=== PATIENT | female | born 1945 | race Caucasian/White ===

== ENCOUNTER 2019-05-21 18:49 | Emergency (ER) | payer MEDICARE, OTHER, SELFPAY ==
[2019-05-21] VITALS (14 sets, daily range): BP systolic 144–163; BP diastolic 55–86; PULSE 57–63; RESP 11–25; TEMP 36.2; O2SAT 85–97
--- NOTE | 2019-05-21 18:57 | DI.CT_ITS ---
SYMPTOM/DIAGNOSIS: FALL. ON PLAVIX, R/O FX AND BLEED, STROKE CERVICAL SPINE CT: 05/21 CT examination of the cervical spine was performed according to the usual protocol. Images obtained through the lung apices show mild reticular nonspecific changes. Tracheolaryngeal structures appear intact. No cervical mass or adenopathy. No gross cervical disc herniation by CT criteria. Moderate degenerative changes are seen involving the facet joints. No evidence of acute intracranial hemorrhage, mass effect or midline shift. No evidence of acute cervical spine fracture or dislocation. CONCLUSION: No evidence of acute cervical spine injury. CRANIAL CT: 05/[address] was performed. Note is made of moderate generalized cerebral atrophy. There is no evidence of acute intracranial hemorrhage, mass effect or midline shift. No calvarial fracture is seen. Paranasal sinuses and mastoid air cells are well aerated. The orbital and temporal bone structures appear intact. CONCLUSION: No evidence of acute intracranial process.
--- NOTE | 2019-05-21 18:57 | DI.RAD_ITS ---
SYMPTOM/DIAGNOSIS: FALL, PROXIMAL HUM PAIN, R/O FX LEFT SHOULDER: 05/21 Three views were obtained and show comminuted fracture of the humeral head and neck with moderate displacement. No evidence of a glenohumeral dislocation. No other fracture seen.
--- NOTE | 2019-05-21 18:58 | DI.RAD_ITS ---
SYMPTOM/DIAGNOSIS: FALL, SOB, COUGH AP AND LATERAL CHEST: 05/21 The heart is enlarged. There is some prominence of upper lobe pulmonary vasculature and there is diffuse interstitial prominence of the lungs, most prominent in the perihilar and upper lung zones. The findings were nonspecific and may represent chronic change but the possibility of mild CHF is not excluded. No pleural effusion is seen. CONCLUSION: Question mild CHF. Appropriate follow up studies requested.
[2019-05-21 19:13] LABS: Abs Immature Grans 0.06 k/cumm (0.0-0.09); Absolute Basophil Count 0.03 k/cumm (0.0-0.2); Absolute Eosinophil Count 0.25 k/cumm (0.0-0.7); Absolute Lymphocyte Count 1.96 k/cumm (1.2-3.4); Absolute Monocyte Count 0.67 k/cumm (0.11-0.7); Absolute Neutrophil Count 6.81 k/cumm (1.2-6.7); Basophils % 0.3; Eosinophils % 2.6; HCT 38.8 % (36.0-46.0); HGB 13.3 g/dL (12.0-15.5); Immature Grans % 0.6; Mean Corp. HGB Concentration 34.3 g/dL (32.0-36.0); Mean Corpuscular Hemoglobin 32.4 pg (27.0-33.0); Mean Corpuscular Volume 94.4 fL (80-95); Mean Platelet Volume 10.2 fL (8.0-11.0); Monocytes % 6.9; Neutrophils % 69.6; Platelet Count 235 x1000/uL (130-400); RBC 4.11 m/cumm (4.00-5.20); RBC Distribution Width 12.8 % (11.7-14.6); White Blood Cell Count 9.78 k/cumm (4.4-10.8)
[2019-05-21 19:25] LABS: PTT Activated 22.7 sec (21.0-31.4); Prothrombin Time 9.5 sec (9.3-11.0)
[2019-05-21 19:30] LABS: ALT 15 U/L (12-78); AST 23 U/L (15-37); Albumin 2.9 g/dL (3.4-5.0); Alkaline Phosphatase 87 U/L (46-116); Anion Gap 10.9 mmol/L (3-11); BUN 48 mg/dL (7-18); Bilirubin, Total 0.2 mg/dL (0.2-1.0); CO2 21.1 mmol/L (21.0-32.0); CREATININE 2.54 mg/dL (0.55-1.02); Calcium 8.6 mg/dL (8.5-10.1); Chloride 109 mmol/L (98-107); Estimated GFR 18.43 (mL/min/1.73m2); Glucose 140 mg/dL (70-100); Potassium 4.5 mmol/L (3.5-5.1); Sodium 141 mmol/L (136-145); Total Protein 6.7 g/dL (6.4-8.2); Troponin I < 0.05 ng/mL (0.00-0.06)
--- NOTE | 2019-05-21 19:54 | NUR.NOTE ---
pt to ct/xray Nursing Note:
[2019-05-21 19:58] LABS: NT-proBNP 4233 pg/mL
--- NOTE | 2019-05-21 20:36 | DI.VRAD_ITS ---
EXAM: XR Left Shoulder EXAM DATE/TIME: 05/21/2019 7:00 PM CLINICAL HISTORY: 74 years old, female; Injury or trauma; Initial encounter; Blunt trauma (contusions or hematomas; Shoulder and arm, upper; Left; Patient HX: Fall, prox hum pain; Additional info: R/O FX TECHNIQUE: Imaging protocol: XR Left shoulder. Views: 2 or more views. COMPARISON: No relevant prior studies available. FINDINGS: Bones/joints: There is a comminuted left proximal humeral fracture. The transverse proximal humeral metaphyseal component demonstrates mild valgus angulation without significant displacement or impaction. There is a slightly displaced (2 mm) greater tuberosity fracture component which demonstrates mild comminution posteriorly. No scapular/glenoid fracture. Glenohumeral alignment is normal. A.C. joint alignment is normal. No blastic or lytic lesions. Adjacent ribs and lung parenchyma are unremarkable. Pleural space: No visible pleural effusion or pneumothorax. Vasculature: Moderate aortic calcification and ectasia. Soft tissues: No gross soft tissue abnormalities. IMPRESSION: Comminuted left proximal humeral fracture as described. Dictated and Authenticated by: Isaiah Meraz MD. Ordering:CARLOS Gallegos MD
--- NOTE | 2019-05-21 20:41 | DI.VRAD_ITS ---
EXAM: CT Head Without Contrast EXAM DATE/TIME: 05/21/2019 7:00 PM CLINICAL HISTORY: 74 years old, female; Injury or trauma; Initial encounter; Blunt trauma (contusions or hematomas); Patient HX: Fall, on plavix; Additional info: R/O FX and bleed, stroke TECHNIQUE: Imaging protocol: Computed tomography images of the head without contrast. Coronal and sagittal reformatted images were created and reviewed. COMPARISON: No relevant prior studies available. FINDINGS: Brain: Moderate generalized atrophy with mild periventricular white matter ischemic changes consistent with the patient's advanced age. No extra-axial fluid collections. No evidence of acute intracranial hemorrhage. Perez-white differentiation is well maintained. No evidence of acute or subacute intracranial ischemia/infarct. No intracranial mass lesions. Midline shift: No midline shift or herniation. Ventricles: Ventricles normal. Bones/joints: The calvarium and visualized facial bones are intact. Sinuses: Visualized paranasal sinuses are clear. Mastoid air cells: Visualized mastoid air cells are clear. Orbits: Orbital contents demonstrate no evidence of acute abnormality. Soft tissues: The scalp and visualized soft tissues demonstrate no acute abnormality. Vasculature: Moderate atherosclerotic calcific plaque is identified in the visualized distal ICA segments . No asymmetric vascular hyperdensities are identified. Other findings: The IACs are grossly normal. The sella is grossly normal. IMPRESSION: No acute intracranial process. EXAM: CT Cervical Spine Without Contrast EXAM DATE/TIME: 05/21/2019 7:00 PM CLINICAL HISTORY: 74 years old, female; Injury or trauma; Initial encounter; Blunt trauma (contusions or hematomas); Patient HX: Fall, on plavix; Additional info: R/O FX and bleed, stroke TECHNIQUE: Imaging protocol: Computed tomography images of the cervical spine without contrast. Coronal and sagittal reformatted images were created and reviewed. COMPARISON: No relevant prior studies available. FINDINGS: Vertebrae: Craniocervical alignment is normal. The odontoid is intact. Discs/Spinal canal/Neural foramina: Moderate degenerative sclerosis and spurring at the atlantodens interval. Slight 1 mm degenerative anterolisthesis is present at C4-C5 and C5-C6 secondary to moderate chronic facet arthropathy. No jumped or perched facets. Disc space heights are well-maintained. No compressive soft disc protrusion or extrusion is evident by CT. No evidence of significant central canal stenosis. No evidence of significant neuroforaminal stenosis. Other bones/joints: Osteopenia. No fractures. No blastic or lytic lesions. Soft tissues: See Vasculature Finding. Thyroid: The thyroid gland is unremarkable. Lungs: Patchy mild airspace disease in the posterior left upper lobe could represent mild atelectasis or infiltrate. Vasculature: Moderate atherosclerotic calcific plaque in the carotid bulbs. Visualized paraspinous soft tissues are otherwise unremarkable. IMPRESSION: 1. No evidence of fracture or acute traumatic subluxation. 2. Osteopenia and mild degenerative changes with slight degrees of degenerative anterolisthesis C4-C5 and C5-C6. 3. 2 mild airspace disease in the posterior left upper lobe could represent mild atelectasis or infiltrate. Dictated and Authenticated by: Isaiah Meraz MD. Ordering:CARLOS Gallegos MD
--- NOTE | 2019-05-21 20:46 | DI.VRAD_ITS ---
EXAM: XR Chest, 2 Views EXAM DATE/TIME: 05/21/2019 7:00 PM CLINICAL HISTORY: 74 years old, female; Cough and shortness of breath; Patient HX: Fall, SOB, cough; Additional info: PT unable to lift left arm for lateral view TECHNIQUE: Imaging protocol: XR of the chest, 2 views. COMPARISON: No relevant prior studies available. FINDINGS: Lungs: Moderate central vascular congestion. Normal pulmonary expansion. No natividad consolidative infiltrates are identified. There is bilateral perihilar interstitial prominence with mild peribronchial thickening and faint perihilar ground glass attenuation probably related to bronchitis and mild subsegmental atelectasis, versus mild perihilar interstitial edema or mild interstitial infiltrate. Pleural space: No pleural effusion. No pneumothorax. Heart/Mediastinum: Mild cardiomegaly. No tracheal/mediastinal shift. Vasculature: Mild aortic ectasia and tortuosity. Bones/joints: Comminuted left proximal humeral fracture again noted with mild varus angulation. Diffuse osteopenia Other findings: The arms down positioning limits the lateral view moderately. IMPRESSION: 1. Perihilar interstitial prominence with faint groundglass attenuation and associated peribronchial thickening, most likely related to bronchitis and subsegmental atelectasis. Cannot exclude mild perihilar interstitial edema or perihilar interstitial infiltrate. 2. No natividad consolidative infiltrates. 3. Osteopenia and comminuted left proximal humeral fracture. Dictated and Authenticated by: Isaiah Meraz MD. Ordering:CARLOS Gallegos MD
--- NOTE | 2019-05-21 21:20 | W.ED.GENAD ---
Discharge Plan Disposition Patient Disposition: HOME Condition: Good Discharge Details Chief Complaint: Orthopedic Clinical Impression: Closed left humeral fracture, Acute UTI Primary Care Provider: ROLA MCCARTY ED Provider: El Bradford Home Meds and New Rx's Prescriptions: New cephalexin [Keflex] 500 mg capsule 500 mg PO QID 10 Days Qty: 40 RF: 0 lidocaine [Lidoderm] 1 PATCH patch 1 patch Topical Q24H Qty: 4 RF: 0 No Action triamcinolone acetonide 0.1 % Ointment 1 applic TOPICAL BID RF: 0 escitalopram oxalate 20 mg Tablet 20 mg PO DAILY RF: 0 quetiapine 25 mg Tablet 25 - 50 mg PO HS RF: 0 metoprolol succinate 50 mg Tablet Extended Release 24 Hr 50 mg PO DAILY RF: 0 carbidopa-levodopa 25-100 mg Tablet 1 tab PO TID RF: 0 bupropion HCl 100 mg Tablet 100 mg PO BID RF: 0 atorvastatin 80 mg Tablet 80 mg PO DAILY RF: 0 clopidogrel 75 mg Tablet 75 mg PO DAILY RF: 0 Trelegy Ellipta 100-62.5-25 mcg Blister With Device 1 ea INHALATION DAILY RF: 0 omega 3-tzj-fhb-fish oil [Fish Oil] 1,000 mg (120 mg-180 mg) Capsule 1 cap PO RF: 0 cholecalciferol (vitamin D3) [Vitamin D3] 1,000 unit Capsule PO DAILY RF: 0 ascorbic acid (vitamin C) [Vitamin C] 500 mg Tablet PO RF: 0 aspirin [Aspir-Low] 81 mg Tablet,Delayed Release (Dr/Ec) 81 mg PO DAILY RF: 0 acetaminophen [Tylenol Extra Strength] 500 mg Tablet 500 - 1,000 mg PO PRN PRNRF: 0 Discharge Instructions Instructions: Urinary Tract Infection in Women (ED), Proximal Humerus Fracture (ED) Additional Instructions: You have a fracture in your humerus next to your shoulder. Please keep the sling on at all times, please take 1000 mg of Tylenol every 6 hours for pain. Please use the Lidoderm patch as directed. Please sleep in a chair at 45 degrees during the evening for comfort. The orthopedic clinic will contact you for an appointment in 1 week for reassessment. Please take the antibiotic as directed for urinary tract infection. If you notice any worsening of your symptoms, or any new symptoms such as vomiting, diarrhea, fever, chills, shortness of breath, chest pain, numbness, weakness, or fainting , please return immediately to the emergency department for reevaluation. Please follow up with your primary care provider as soon as possible for reassessment and reevaluation. As always, it was a pleasure participating in your medical care today. Referrals: ROLA MCCARTY [Primary Care Provider] - Discharge Data Discharge Date/Time-TO BE ENTERED AT DEPARTURE: 05/21/19 22:36 Medical Decision Making This is a 74-year-old female with a past medical history of cardiac disease and 2 stents who was recently discharged from [facility] on May 10, was on Plavix, presents today for evaluation of orthopedic injury. Patient was at her home with her daughter when she was walking in her Leg caught on a heating register on the ground. This caused her to fall forward. She did hit her head and landed on her left shoulder. [facility] was bypassed secondary to the lack of orthopedic coverage. She was given fentanyl and Zofran ODT by EMS. On arrival she demonstrated no cervical thoracic or lumbar spine tenderness. She did demonstrate notable tenderness in her left shoulder. Normal neurovascular exam. No focal neurologic deficits. CT scan of the head neck was ordered and shows no evidence of acute traumatic process or bleed. X-ray of the left shoulder demonstrates a comminuted proximal humeral fracture. Sensation strength and vascular exam is notably intact distal to the injury. Laboratory work-up demonstrates a unremarkable EKG aside for evidence of her previous infarct. Laboratory work-up demonstrates a stable hemoglobin, no white count, normal electrolytes. Renal function is elevated with a creatinine of 2.54, however review of labs at [facility] indicate that this is notably chronic for the patient. We did discuss the patient's renal function and she and family state that she has known chronic kidney disease. No evidence of acute unstable renal dysfunction at this time. Urinalysis does show evidence of a mild urinary tract infection. Chest x-ray does show evidence of questionable infiltrate versus atelectasis at the apical aspect of the lungs. With known resistance patterns in [place] and [place] being high for azithromycin, and her [facility] and local microbiology assessments notably susceptible to amoxicillin and cephalosporins, we will give Keflex 500 mg 4 times daily for treatment of UTI as well as expectant coverage for minimal atelectasis versus pneumonia. With stable oxygenation, no signs of significant hypoxemia, normal heart rate and being afebrile I do feel that she is currently stable. We did contact the dentofacial orthopedics dentist Dr. Collier television installer, case, images were reviewed, and at this time from an orthopedic standpoint he does not see an indication for admission feels that she does require sling, and close follow-up with repeat imaging in 1 week for potential surgical reassessment. Patient was placed in a sling, pain was well controlled. We did get the patient off, and ambulated her around the emergency department. Oxygenation remained stable, patient was not ataxic, she ambulated well demonstrated good control. Patient's daughter lives with her at all times. We discussed admission versus discharge and at this time family feels comfortable with discharge and close outpatient follow-up. Stable vital signs, patient will be discharged home with close follow-up outpatient orthopedic surgery. I have extensively reviewed the treatment plan and discharge instructions with the patient and their family. I have addressed all patient concerns at this time. The patient and family was made aware of what symptoms to monitor for that would warrant a return to the emergency department. Discussed the plan with the patient and family, they demonstrate verbal understanding and agreement with our assessment and plan at this time. EKG 19: 08 Rate 60, intervals normal, sinus rhythm, no significant ST elevations or depressions, no T wave inversion except for in lead III and aVF. Notable Q waves in lead II, III, and aVF. FINDINGS: Bones/joints: There is a comminuted left proximal humeral fracture. The transverse proximal humeral metaphyseal component demonstrates mild valgus angulation without significant displacement or impaction. There is a slightly displaced (2 mm) greater tuberosity fracture component which demonstrates mild comminution posteriorly. No scapular/glenoid fracture. Glenohumeral alignment is normal. A.C. joint alignment is normal. No blastic or lytic lesions. Adjacent ribs and lung parenchyma are unremarkable. Pleural space: No visible pleural effusion or pneumothorax. Vasculature: Moderate aortic calcification and ectasia. Soft tissues: No gross soft tissue abnormalities. IMPRESSION: Comminuted left proximal humeral fracture as described FINDINGS: Brain: Moderate generalized atrophy with mild periventricular white matter ischemic changes consistent with the patient's advanced age. No extra-axial fluid collections. No evidence of acute intracranial hemorrhage. Perez-white differentiation is well maintained. No evidence of acute or subacute intracranial ischemia/infarct. No intracranial mass lesions. Midline shift: No midline shift or herniation. Ventricles: Ventricles normal. Bones/joints: The calvarium and visualized facial bones are intact. Sinuses: Visualized paranasal sinuses are clear. Mastoid air cells: Visualized mastoid air cells are clear. Orbits: Orbital contents demonstrate no evidence of acute abnormality. Soft tissues: The scalp and visualized soft tissues demonstrate no acute abnormality. Vasculature: Moderate atherosclerotic calcific plaque is identified in the visualized distal ICA segments . No asymmetric vascular hyperdensities are identified. Other findings: The IACs are grossly normal. The sella is grossly normal IMPRESSION: No acute intracranial process. FINDINGS: Vertebrae: Craniocervical alignment is normal. The odontoid is intact. Discs/Spinal canal/Neural foramina: Moderate degenerative sclerosis and spurring at the atlantodens interval. Slight 1 mm degenerative anterolisthesis is present at C4-C5 and C5-C6 secondary to moderate chronic facet arthropathy. No jumped or perched facets. Disc space heights are well-maintained. No compressive soft disc protrusion or extrusion is evident by CT. No evidence of significant central canal stenosis. No evidence of significant neuroforaminal stenosis. Other bones/joints: Osteopenia. No fractures. No blastic or lytic lesions. Soft tissues: See Vasculature Finding. Thyroid: The thyroid gland is unremarkable. Lungs: Patchy mild airspace disease in the posterior left upper lobe could represent mild atelectasis or infiltrate. Vasculature: Moderate atherosclerotic calcific plaque in the carotid bulbs. Visualized paraspinous soft tissues are otherwise unremarkable. IMPRESSION: 1. No evidence of fracture or acute traumatic subluxation. 2. Osteopenia and mild degenerative changes with slight degrees of degenerative anterolisthesis C4- C5 and C5-C6. 3. 2 mild airspace disease in the posterior left upper lobe could represent mild atelectasis or infiltrate. Thank you for allowing us to participate in the care of your patient. Dictated and Authenticated by: Isaiah Meraz MD HPI General Date/Time Provider Initiated Documentation: 05/21/19 18:57. HPI Narrative: This is a 74-year-old female with a past medical history of notable cardiac disease with recent cardiac stents in May 10, was on daily Plavix and aspirin, as well as hypertension high cholesterol diabetes and chronic kidney disease. She presents today for evaluation of fall and left shoulder pain. Patient and the patient's daughter who lives with the patient at home states that patient was walking around the house today when her pant legs caught on a heating unit register on the ground. This caused the patient to fall, she did hit her head but most definitely landed on her left shoulder causing notable pain [place]. EMS was contacted and out of concern for potential orthopedic injury [facility] was bypassed due to lack of orthopedic coverage and the patient was brought to [facility] for further evaluation. Patient was initially mildly short of breath when the episode initially happened, she is also notably nauseous and vomited once, she was given fentanyl for her pain as well as ODT Zofran by EMS and the symptoms all resolved completely. Aside for pain in her left shoulder the patient denies any chest pain, chest heaviness, headache, vision change, numbness tingling or weakness. She denies any recent fever or chills. He has no other complaints at this time. No other modifying factors. Related Data Home Medications Medication Instructions Recorded Confirmed acetaminophen [Tylenol Extra 500 - 1,000 mg PO PRN PRN 05/21/19 05/21/19 Strength] ascorbic acid (vitamin C) [Vitamin mg PO 05/21/19 C] aspirin [Aspir-Low] 81 mg PO DAILY 05/21/19 05/21/19 atorvastatin 80 mg PO DAILY 05/21/19 05/21/19 bupropion HCl 100 mg PO BID 05/21/19 05/21/19 carbidopa-levodopa 1 tab PO TID 05/21/19 05/21/19 cephalexin [Keflex] 500 mg PO QID 10 Days #40 cap 05/21/19 cholecalciferol (vitamin D3) unit PO DAILY 05/21/19 [Vitamin D3] clopidogrel 75 mg PO DAILY 05/21/19 05/21/19 escitalopram oxalate 20 mg PO DAILY 05/21/19 05/21/19 [id number] 1 ea INHALATION DAILY 05/21/19 05/21/19 [Trelegy Ellipta] lidocaine [Lidoderm] 1 patch TOPICAL Q24H #4 patch 05/21/19 metoprolol succinate 50 mg PO DAILY 05/21/19 05/21/19 omega 0-qqd-pxd-fish oil [Fish Oil] 1 cap PO 05/21/19 quetiapine 25 - 50 mg PO HS 05/21/19 05/21/19 triamcinolone acetonide 1 applic TOPICAL BID 05/21/19 05/21/19 Previous Rx's Medication Instructions Recorded cephalexin [Keflex] 500 mg PO QID 10 Days #40 cap 05/21/19 lidocaine [Lidoderm] 1 patch TOPICAL Q24H #4 patch 05/21/19 Allergies Allergy/AdvReac Type Severity Reaction Status Date / Time diclofenac [From Voltaren] AdvReac Intermediate Hives Unverified 05/21/19 19:03 methotrexate AdvReac Intermediate kidney Unverified 05/21/19 19:03 damage trihexyphenidyl AdvReac Intermediate memory loss Unverified 05/21/19 19:03 IV dye AdvReac Mild Skin Rash Uncoded 05/21/19 19:03 General Stated Complaint: Orthopedic GISSELL: 2 Review of Systems Review of Systems All systems reviewed & are unremarkable except as noted in HPI and below PFSH Social History Smoking/Tobacco Use Status: Former Tobacco Use Alcohol Intake: former Substance use type: does not use Do you feel safe at home: Yes Do you feel safe in your relationship?: Yes Exam Narrative Exam Narrative: 1.Const: Well-nourished, Well-developed, appearing stated age 2.Eyes: PERRL, no conjunctival injection, and symmetrical lids. 3.ENT: Atraumatic external nose and ears. Moist MM. Neck: Symmetric, trachea midline, No thyromegaly. There is no evidence of raccoon eyes, polk sign, CSF rhinorrhea, mastoid tenderness, cranial crepitus, hemotympanum, exophthalmos, or hyphema. Patient demonstrates intact dentition with no signs of tooth avulsion or fracture, no signs of jaw deformity, no evidence of a LeFort's fracture, with an intact palate, nose and orbital region. There is no evidence of a nasal septal hematoma. No proptosis. Jaw closes symmetrically. Airway is clear. 4.CVS: Regular rate and rhythm, Normal s1 and s2. No murmurs, carotid bruits, rubs, or gallops. Radial pulses 2+ bilaterally and symmetric. Dorsalis pedis pulses 2+ bilaterally and symmetric. 2+ capillary refill. No evidence of distant heart sounds. No extremity edema. No evidence of gross hemorrhage. 5.RESP: Airway clear, no obstructions. No abrasions or ecchymosis. Chest movement symmetric with respirations. No chest wall tenderness. Trachea midline. No crepitus. No step offs. No paradoxical movements. Lungs are clear to auscultation bilaterally. No rales, rhonchi, wheezing or stridor. Breath sound symmetric. No Sucking chest wounds. No clinical evidence of significant chest trauma. 6.GI: Soft, Nontender/Nondistended, No hepatosplenomegaly. No guarding or rebound. 7.MSK: Patient demonstrates no cervical thoracic or lumbar midline spine tenderness. No tenderness over the ribs. Right upper extremity and bilateral lower extremities are normal for movement strength and exam. All compartments are soft. Left upper extremity: Notable tenderness over the proximal humerus. No tenderness over the midshaft or distal humerus. No elbow wrist or hand tenderness. Capillary refill is brisk in all fingers and toes. Radial pulses and dorsalis pedis pulses +2 bilaterally. Sensation intact in all fingers. No evidence of neurovascular compromise 8.Skin: Warm, Dry. No rashes or lesions. 9.Neuro: weight loss physician II-XII grossly intact. Sensation grossly intact, no focal neurologic deficits. 10.Psych: (AAO) x3. Appropriate mood and affect Course Vital Signs Respiratory Rate 12 05/21/19 18:49 Pulse Oximetry 89 L 05/21/19 18:49 Temperature 36.2 C L 05/21/19 18:50 Temperature Source Skin 05/21/19 18:50 Pulse 61 05/21/19 20:42 Pulse 60 05/21/19 20:42 Respiratory Rate 25 H 05/21/19 20:42 Respiratory Effort Non-Labored 05/21/19 19:27 Blood Pressure 144/55 H 05/21/19 20:42 Blood Pressure Mean 78 05/21/19 20:42 Pulse Oximetry 93 L 05/21/19 20:42 Oxygen Delivery Method Room Air 05/21/19 18:50 Oxygen Flow Rate 0 05/21/19 18:50 Pain Level 5 05/21/19 18:50 Comment 92% on 4 liters 05/21/19 18:50 Lab/Test Results Lab/Test Results: Laboratory Tests Range/Units 05/21/19 05/21/19 05/21/19 19:06 19:06 19:06 WBC (4.4-10.8) k/cumm 9.78 RBC (4.00-5.20) m/cumm 4.11 Hgb (12.0-15.5) g/dL 13.3 Hct (36.0-46.0) % 38.8 MCV (80-95) fL 94.4 MCH (27.0-33.0) pg 32.4 MCHC (32.0-36.0) g/dL 34.3 RDW (11.7-14.6) % 12.8 Plt Count (130-400) x1000/uL 235 MPV (8.0-11.0) fL 10.2 Immature Gran % 0.6 Neutrophils % 69.6 Lymphocytes % 20.0 Monocytes % 6.9 Eosinophils % 2.6 Basophils % 0.3 Absolute Neutrophils (1.2-6.7) k/cumm 6.81 H Absolute Lymphocytes (1.2-3.4) k/cumm 1.96 Absolute Monocytes (0.11-0.7) k/cumm 0.67 Absolute Eosinophils (0.0-0.7) k/cumm 0.25 Absolute Basophils (0.0-0.2) k/cumm 0.03 PT (9.3-11.0) sec 9.5 INR (0.9-1.1) 1.0 APTT (21.0-31.4) sec 22.7 Sodium (136-145) mmol/L 141 Potassium (3.5-5.1) mmol/L 4.5 Chloride (98-107) mmol/L 109 H Carbon Dioxide (21.0-32.0) mmol/L 21.1 Anion Gap (3-11) mmol/L 10.9 BUN (7-18) mg/dL 48 H Creatinine (0.55-1.02) mg/dL 2.54 H Estimated GFR/1.73 m2 (mL/min/1.73m2) 18.43 Glucose (70-100) mg/dL 140 H Calcium (8.5-10.1) mg/dL 8.6 Total Bilirubin (0.2-1.0) mg/dL 0.2 AST (15-37) U/L 23 ALT (12-78) U/L 15 Alkaline Phosphatase (46-116) U/L 87 Troponin I (0.00-0.06) ng/mL < 0.05 NT-Pro-B Natriuret Pep ( - 299) pg/mL 4233 H Total Protein (6.4-8.2) g/dL 6.7 Albumin (3.4-5.0) g/dL 2.9 L
[2019-05-21 21:40] LABS: Bilirubin Negative (Negative); Blood Trace-intact (Negative); Clarity Clear (Clear); Glucose Negative (Negative); Ketones Negative (Negative); Leukocyte Esterase Trace (Negative); Nitrite Negative (Negative); Specific Gravity 1.025 (1.005-1.025); Urobilinogen 0.2 EU/dL (Up TO 0.2)
[2019-05-21 21:53] LABS: Bacteria Few HPF (Negative); C & S Indicated? Yes; Casts Negative LPF (Negative); Crystals Negative HPF (Negative); Epithelial Cells Negative HPF (Negative); Mucus Negative (Negative); Other Cells Negative (Negative)
== END 2019-05-21 22:36 | disposition home or self-care (01) ==
PROVIDERS: Emergency Provider Student in an Organized Health Care Education/Training Program; PCP Internal Medicine
DX: S42.292A Other displaced fracture of upper end of left humerus, initial encounter for closed fracture (principal); W01.198A Fall on same level from slipping, tripping and stumbling with subsequent striking against other object, initial encounter; N39.0 Urinary tract infection, site not specified; R11.2 Nausea with vomiting, unspecified; N18.9 Chronic kidney disease, unspecified; I12.9 Hypertensive chronic kidney disease with stage 1 through stage 4 chronic kidney disease, or unspecified chronic kidney disease; E11.22 Type 2 diabetes mellitus with diabetic chronic kidney disease
CPT/HCPCS: 36415; 80053; 93005; 99285; 70450; 71046; 72125; 73030; 81003; 81015; 83880; 84484; 85025; 85610; 85730; 87086; 93010; L3650

== ENCOUNTER → 2019-05-29 10:15 | Outpatient (CLI) | payer MEDICARE, OTHER, SELFPAY ==
--- NOTE | 2019-05-29 10:06 | DI.RAD_ITS ---
SYMPTOM/DIAGNOSIS: F/U LEFT SHOULDER: 05/29 Three views were obtained. The previously described proximal humeral fracture again noted. No gross interval change in alignment of fracture fragments in comparison with examination of May 21.
== END ==
PROVIDERS: PCP Internal Medicine; Referring Provider Internal Medicine; Visit Provider Orthopaedic Surgery
DX: S42.202A Unspecified fracture of upper end of left humerus, initial encounter for closed fracture (principal); W01.198A Fall on same level from slipping, tripping and stumbling with subsequent striking against other object, initial encounter
CPT/HCPCS: 99203; 99213; 73030